=== PATIENT | male | born 1945 | race Caucasian/White ===

== ENCOUNTER 2016-08-31 07:10 | Emergency (ER) | payer OTHER ==
[~2016-08-31] VITALS: Ht 172.7 cm; Wt 90.7 kg
[~2016-08-31 07:10] MED LIST: CIPROFLOXACIN500 MG PO
[2016-08-31] MEDS ORDERED: ASPIRIN325 M2 PO (07:21)
[2016-08-31 07:54] LABS: BASO # 0.1 10*3/uL (0.0-0.1); BASO % 0.7 % (0.0-1.0); EOS # 0.1 10*3/uL (0.0-0.4); EOS % 1.3 % (1.0-4.0); HEMATOCRIT 45.9 % (42.0-52.0); HEMOGLOBIN 14.1 g/dl (14.0-18.0); IG # 0.1 10*3/uL (0.0-0.1); LYMPH # 1.9 10*3/uL (1.3-4.4); LYMPH % 17.5 % (27.0-41.0); MEAN CORPUSCULAR HGB 26.4 pg (27.0-31.0); MEAN CORPUSCULAR HGB CONC 30.7 g/dl (33.0-37.0); MEAN PLATELET VOLUME 12.6 fl (9.6-12.3); MONO # 0.8 10*3/uL (0.1-1.0); MONO % 7.6 % (3.0-9.0); NEUT # 7.8 10*3/uL (2.3-7.9); NEUT % 72.2 % (47.0-73.0); PLATELET COUNT AUTOMATED 220 10*3/uL (130-400); RED BLOOD COUNT 5.34 10*6/uL (4.50-5.90); RED CELL DISTRI WIDTH 17.7 % (0-14.5); WHITE BLOOD COUNT 10.7 10*3/uL (4.8-10.8)
[2016-08-31 08:09] LABS: ALBUMIN 3.3 gm/dl (3.1-4.5); ALKALINE PHOSPHATASE 114 U/L (45-117); BUN 25 mg/dl (7-24); CARBON DIOXIDE 27 mmol/L (21-32); CHLORIDE 108 mmol/L (98-107); EST GLOM FILT AFRICAN AMERICAN > 60 ml/min; GLUCOSE 128 mg/dL (65-99); POTASSIUM 4.1 mmol/L (3.5-5.1); SGOT/AST 32 IU/L (3-35); SGPT/ALT 87 U/L (12-78); SODIUM 146 mmol/L (136-145); TOTAL PROTEIN 7.3 gm/dL (6.4-8.2)
[2016-08-31 08:13] LABS: TROPONIN I 0.053 ng/ml (<0.045)
== END 2016-08-31 17:14 | disposition short-term general hospital (02) ==
LOC: ED 07:10
PROVIDERS: Emergency Medicine
DX: I48.91 Unspecified atrial fibrillation (principal); J90 Pleural effusion, not elsewhere classified; R79.89 Other specified abnormal findings of blood chemistry; F17.200 Nicotine dependence, unspecified, uncomplicated; Z79.899 Other long term (current) drug therapy

== ENCOUNTER → 2016-09-12 | Outpatient (CLI) | payer OTHER ==
[~2016-09-12] MED LIST changes: +ASPIRIN325 M2 PO
[2016-09-12 09:44] LABS: BUN 27 mg/dl (7-24); CARBON DIOXIDE 26 mmol/L (21-32); CHLORIDE 105 mmol/L (98-107); EST GLOM FILT AFRICAN AMERICAN > 60 ml/min; GLUCOSE 116 mg/dL (65-99); MAGNESIUM 2.5 mg/dL (1.5-2.1); PHOSPHOROUS 3.3 mg/dL (2.5-4.9); POTASSIUM 4.3 mmol/L (3.5-5.1); SODIUM 139 mmol/L (136-145)
== END | disposition home or self-care (01) ==
LOC: LAB 08:31
DX: I50.9 Heart failure, unspecified (principal)

== ENCOUNTER 2017-06-11 11:31 | Inpatient (IN) | payer OTHER ==
[~2017-06-11] VITALS: Ht 172.7 cm; Wt 84.6 kg
--- NOTE | ~2017-06-11 | PR ---
[place], [place] PROGRESS NOTE NAME: MIKA FOX UNIT #: [id number] ROOM: 522 DOCTOR: RISHI PANDEY MD BIRTHDATE: [birth year] DOS: 06/13/2017 SUBJECTIVE: The patient has a cough. He states he is less restless today, about to order some breakfast, does not have any new complaints, mostly is in bed. OBJECTIVE: VITAL SIGNS: Blood pressure is 146/90, pulse of 80, respirations 18, temperature 97.9. LUNGS: Clear. HEART: Regular. ABDOMEN: Soft. EXTREMITIES: Without any edema. ASSESSMENT AND PLAN: 1. 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 Overall, prognosis remains poor. 2. Mass effect from the cerebellar mets. The patient is being placed on Decadron. He has requested hospice care. Hopefully, they will accept him and he can be discharged home today on hospice. RISHI PANDEY MD CM:PNTRANS [id number] RISHI PANDEY MD 06/13/17 1540 interface
--- NOTE | ~2017-06-11 | WRIGHTHP ---
[place], [place] PATIENT HISTORY AND PHYSICAL EXAM NAME: MIKA FOX UNIT #: [id number] ROOM: 522 DOCTOR: RISHI PANDEY MD BIRTHDATE: [birth year] DOS: 06/11/2017 HISTORY OF PRESENT ILLNESS: This patient is not known to me, 71 years old, comes into the emergency room with complaints of weakness, tiredness and falling. The patient was diagnosed with CA of the lung about 8 months ago. He did not seek any medical treatment and continues to live at home with his sister and his daughter. The patient states that he is in pain all over his body. He also has had some headaches. He denies having any chest pains or palpitations or shortness of breath. PAST MEDICAL HISTORY: Significant for: 1. Diagnosis of CA lung made 8 months ago. There was no medical treatment ordered for that. 2. History of atrial fibrillation. 3. Generalized anxiety disorder. 4. History of transfer to [facility] in 2017 for chest pain. MEDICATIONS: He is currently on are Xanax 0.5 q.i.d., aspirin 325 daily, digoxin 0.125 daily, Lexapro 20 daily, Lasix 80 daily, melatonin 3 mg daily. SOCIAL HISTORY: History of smoking. Denies using any alcohol. Again, lives at home with his daughter and sister. PHYSICAL EXAMINATION: GENERAL: He is awake and alert and oriented, slightly restless. VITAL SIGNS: Graphic trend shows a pressure of 142/70, pulse of 76, respirations 14, afebrile. LUNGS: Diminished breath sounds. No wheezes heard this morning, a few scattered rhonchi could be heard. HEART: Irregular. Heart rate in the 90s. ABDOMEN: Soft, scaphoid. EXTREMITIES: Without any edema. ASSESSMENT AND PLAN: 1. The patient with CA lung, who presents after a fall at home. He has decided not to undergo any treatment for his underlying malignancy. I do not know what the pathology is of his lung cancer. So for right now he has had a CT scan of the head done which showed localized mass effect, vasogenic edema with multiple mets noticed. So, it is appropriate for this patient to be on hospice care. The patient has requested the hospice, so arrangements will be made for hospice to see him. He would like to go home with hospice if that can be arranged we will do that. 2. Frailty with falls from the underlying cancer. No new treatments will be ordered, but Decadron 4 mg twice a day will be started for the edema which can be continued at home. 3. Chronic atrial fibrillation, on digoxin and Lasix, which also being continued. [place], [place] PATIENT HISTORY AND PHYSICAL EXAM NAME: MIKA FOX UNIT #: [id number] ROOM: 522 DOCTOR: RISHI PANDEY MD BIRTHDATE: [birth year] RISHI PANDEY MD CM:HISPHYS:PATIENT HISTORY AND PHYSICAL EXAMINATION [id number] RISHI PANDEY MD 06/12/17 1723 interface
--- NOTE | ~2017-06-11 | PR ---
[place], [place] PROGRESS NOTE NAME: MIKA FOX UNIT #: [id number] ROOM: 522 DOCTOR: RISHI PANDEY MD BIRTHDATE: [birth year] DOS: 06/19/2017 SUBJECTIVE: The patient is about the same, does not have any new changes. He is still waiting for placement. OBJECTIVE: VITAL SIGNS: Graphic trend shows a pressure of 133/75, pulse of 71, respirations 20, temperature 97.4. LUNGS: Diminished breath sounds, clear. HEART: Regular. ABDOMEN: Soft. EXTREMITIES: Without any edema. GENERAL: He is awake and alert and oriented, slightly slow in mentation, but answers questions appropriately. ASSESSMENT AND PLAN: 1. Lung cancer with mets to the brain. Overall, prognosis remains poor and guarded. 2. Mets causing him surrounding cerebral edema, on Decadron. 3. Adult failure to thrive. The patient to go to [facility] today when bed is available. RISHI PANDEY MD CM:PNTRANS [phone] RISHI PANDEY MD 06/20/17 1325 interface
--- NOTE | ~2017-06-11 | PR ---
[place], [place] PROGRESS NOTE NAME: MIKA FOX UNIT #: [id number] ROOM: 522 DOCTOR: MEGAN MORRIS,CARLOTTA Au BIRTHDATE: [birth year] DOS: 06/16/2017 The patient says he is starting to feel better. He is being treated by Dr. Berry after admission for adult failure to thrive and he worked with physical therapy. Carcinoma of the lung with metastasis to the brain. Mass effect from cerebral metastasis, poor prognosis. Chronic atrial fibrillation with controlled heart rate with digoxin. Generalized anxiety disorder treated and controlled with Xanax. CARLOTTA GUZMAN MD CM:PNTRANS [id number] CARLOTTA GUZMAN MD 06/16/17 2252 interface
--- NOTE | ~2017-06-11 | PR ---
[place], [place] PROGRESS NOTE NAME: MIKA FOX UNIT #: [id number] ROOM: 522 DOCTOR: RISHI PANDEY MD BIRTHDATE: [birth year] DOS: 06/15/2017 SUBJECTIVE: The patient is doing fine without any complaints this morning. OBJECTIVE: VITAL SIGNS: Graph trend shows pressure of 142/96, pulse of 76, respirations 20, temperature 98.1. LUNGS: Diminished breath sounds. HEART: Regular. ABDOMEN: Obese. EXTREMITIES: Without any edema. ASSESSMENT AND PLAN: 1. 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 2. Adult failure to thrive. The patient is now planning to go home. Sister plans to take care of him, so plan is to discharge him to home today. RISHI PANDEY MD CM:PNTRANS [id number] RISHI PANDEY MD 06/15/17 2204 interface
--- NOTE | ~2017-06-11 | PR ---
[place], [place] PROGRESS NOTE NAME: MIKA FOX UNIT #: [id number] ROOM: 522 DOCTOR: RISHI PANDEY MD BIRTHDATE: [birth year] DOS: SUBJECTIVE: The patient is doing okay, does not have any new complaints. OBJECTIVE: VITAL SIGNS: Graphic trend shows a pressure 123/71, pulse of 78, respirations 16 and temperature 97.6. LUNGS: Diminished breath sounds, clear. HEART: Regular. ABDOMEN: Soft. EXTREMITIES: Without any edema. ASSESSMENT AND PLAN: Carcinoma of the lung with mets to the brain with mass effect. The patient is stable. Unfortunately, we were not able to discharge him with hospice because he does not have any family to accept him at home, so waiting for social service input into that. The patient will stay here. We will discontinue the fluids. RISHI PANDEY MD CM:PNTRANS [phone] RISHI PANDEY MD 06/14/17 1020 interface
--- NOTE | ~2017-06-11 | DS ---
[place], [place] DISCHARGE SUMMARY NAME: MIKA FOX UNIT #: [id number] ROOM: 522 DOCTOR: RISHI PANDEY MD BIRTHDATE: [birth year] DOS: 06/13/2017 DIAGNOSES: 1. Carcinoma of the lung with mets to the brain. 2. Mass effect from cerebral metastasis. 3. Adult failure to thrive with frailty and falls. 4. History of atrial fibrillation. HOSPITAL COURSE: A 71-year-old patient who comes in with complaints of weakness, tiredness and multiple falls. After admission, the patient was placed on Decadron. Hospice consultation was obtained. The patient has requested to hospice for discharge to home, so the plan therefore is for the hospice to accept him today and discharge him to home today. Decadron was started and will be continued at home. The patient to follow up with his PCP as an outpatient. Discharge medications will remain the same as on home medications. No changes were made, which is aspirin 325, digoxin 0.125, melatonin 3 mg, Lexapro 20, Xanax 0.5 q.i.d., Lasix 80. RISHI PANDEY MD CM:DISCHARG [phone] [id number] RISHI PANDEY MD 06/13/17902 interface
--- NOTE | ~2017-06-11 | PR ---
[place], [place] PROGRESS NOTE NAME: MIKA FOX UNIT #: [id number] ROOM: 522 DOCTOR: CARLOTTA GUZMAN MD BIRTHDATE: [birth year] DOS: 06/17/2017 SUBJECTIVE: The [facility] to [facility]. OBJECTIVE: VITAL SIGNS: Blood pressure 127/80, heart rate 87 beats per minute, breathing 20 times per minute, temperature 98.5 degrees Fahrenheit. GENERAL APPEARANCE: The patient is alert and oriented x 3, in no visible distress, except for generalized weakness. HEENT AND NECK: Exam within normal limits. CARDIOVASCULAR SYSTEM: Heart rate is regular in rate and rhythm. S1 and S2 normally audible. LUNGS: Clear to auscultation. ABDOMEN: Soft, nontender. No obvious organomegaly. Bowel sounds are present. EXTREMITIES: Without significant cyanosis or edema. IMPRESSION AND PLAN: 1. The patient with metastatic carcinoma of the lung to the brain with some brain edema and poor prognosis. The patient says he would like to go to nursing facility for rehabilitation. The patient says he is already working with hospice. 2. Advance adult failure to thrive. The patient is working with physical therapy. 3. Chronic atrial fibrillation, with controlled heart rates with digoxin. 4. Generalized anxiety disorder, treated and controlled with Xanax as needed. CARLOTTA GUZMAN MD CM:PNTRANS [phone] CARLOTTA GUZMAN MD 06/17/171840 interface
--- NOTE | ~2017-06-11 | PR ---
[place], [place] PROGRESS NOTE NAME: MIKA FOX UNIT #: [id number] ROOM: 522 DOCTOR: CARLOTTA GUZMAN MD BIRTHDATE: [birth year] DOS: 06/18/2017 SUBJECTIVE: The patient is feeling about the same. OBJECTIVE: VITAL SIGNS: Blood pressure 120/83, heart rate 83 beats, breathing 20 times per minute, temperature 98 degrees Fahrenheit. GENERAL: Generalized weakness. HEENT AND NECK: Exam within normal limits. CARDIOVASCULAR SYSTEM: Heart rate is regular in rate and rhythm. S1 and S2 normally audible. LUNGS: Clear to auscultation. ABDOMEN: Soft, nontender. No obvious organomegaly. Bowel sounds are present. EXTREMITIES: Without significant cyanosis or edema. IMPRESSION: 1. The patient with metastatic carcinoma of the lung to the brain with brain edema and mass effect. The patient [facility]. His prognosis is poor. The patient says he is already working with hospice. 2. Advance adult failure to thrive. The patient working with physical therapy. 3. Chronic atrial fibrillation with controlled heart rates with digoxin. 4. Generalized anxiety disorder, treated and controlled with Xanax as needed. CARLOTTA GUZMAN MD CM:PNTRANS [phone] CARLOTTA GUZMAN MD 06/19/17 0848 interface
[2017-06-11 11:31] VITALS: BP 137/78
[2017-06-11] MEDS ORDERED: DIGOX125 MCG PO (11:50)
[2017-06-11] MEDS ORDERED: LEXAPRO20 MG PO (11:50)
[2017-06-11] MEDS ORDERED: MELATONIN3 MG PO (11:50)
[2017-06-11] MEDS ORDERED: XANAX0.5 MG PO (11:52)
[2017-06-11] MEDS ORDERED: LASIX80 MG PO (11:52)
[2017-06-11 12:33] LABS: BASO # 0.1 10*3/uL (0.0-0.1); BASO % 0.6 % (0.0-1.0); EOS # 0.1 10*3/uL (0.0-0.4); EOS % 1.7 % (1.0-4.0); HEMATOCRIT 43.6 % (42.0-52.0); HEMOGLOBIN 13.2 g/dl (14.0-18.0); LYMPH # 0.9 10*3/uL (1.3-4.4); LYMPH % 10.2 % (27.0-41.0); MEAN CELL VOLUME 79.6 fl (80.0-94.0); MEAN CORPUSCULAR HGB 24.1 pg (27.0-31.0); MEAN CORPUSCULAR HGB CONC 30.3 g/dl (33.0-37.0); MEAN PLATELET VOLUME 10.5 fl (9.6-12.3); MONO # 0.6 10*3/uL (0.1-1.0); MONO % 7.5 % (3.0-9.0); NEUT # 6.6 10*3/uL (2.3-7.9); NEUT % 79.5 % (47.0-73.0); PLATELET COUNT AUTOMATED 273 10*3/uL (130-400); RED BLOOD COUNT 5.48 10*6/uL (4.50-5.90); RED CELL DISTRI WIDTH 18.1 % (0-14.5); WHITE BLOOD COUNT 8.3 10*3/uL (4.8-10.8)
[2017-06-11 12:42] LABS: ACT PARTIAL THROMBO TIME 26.3 SECONDS (20.8-31.5)
[2017-06-11 12:51] LABS: ALBUMIN 3.1 gm/dl (3.1-4.5); ALKALINE PHOSPHATASE 104 U/L (45-117); BUN 13 mg/dl (7-24); CHLORIDE 99 mmol/L (98-107); POTASSIUM 3.7 mmol/L (3.5-5.1); SGOT/AST 23 IU/L (3-35); SGPT/ALT 13 U/L (12-78); SODIUM 139 mmol/L (136-145); TOTAL PROTEIN 7.9 gm/dL (6.4-8.2)
[2017-06-11 12:52] LABS: TROPONIN I < 0.015 ng/ml (<0.045)
[2017-06-11 13:00] VITALS: BP 113/559
[2017-06-11 14:42] VITALS: BP 153/83
[2017-06-11 16:00] VITALS: BP 129/68
[2017-06-11 20:00] VITALS: BP 128/82
[2017-06-12] VITALS: BP 131/83
[2017-06-12 08:00] VITALS: BP 131/74
[2017-06-12 12:00] VITALS: BP 134/79
[2017-06-12 16:00] VITALS: BP 129/67
[2017-06-12 20:00] VITALS: BP 122/67
[2017-06-13] VITALS: BP 121/78
[2017-06-13 08:00] VITALS: BP 146/97
[2017-06-13] MEDS ORDERED: DECADRON4 MG PO (08:30)
[2017-06-13 12:00] VITALS: BP 146/91
[2017-06-13 16:00] VITALS: BP 140/80
[2017-06-13 20:00] VITALS: BP 134/72
[2017-06-14] VITALS: BP 133/94
[2017-06-14 08:00] VITALS: BP 123/71
[2017-06-14 12:00] VITALS: BP 126/73
[2017-06-14 16:00] VITALS: BP 124/70
[2017-06-14 18:17] LABS: BILIRUBIN NEGATIVE (NEGATIVE); BLOOD NEGATIVE (NEGATIVE); CLARITY CLEAR (CLEAR); COLOR YELLOW (YELLOW); GLUCOSE NEGATIVE (NEGATIVE); KETONE NEGATIVE (NEGATIVE); LEUKO ESTERASE NEGATIVE (NEGATIVE); NITRITE NEGATIVE (NEGATIVE); UROBILINOGEN 0.2 E.U./dl (0.2-1.0)
[2017-06-14 18:30] LABS: BACTERIA TRACE; RBC 0-2 rbc/hpf (0-2)
[2017-06-14 20:00] VITALS: BP 139/82
[2017-06-15] VITALS: BP 142/96
[2017-06-15 08:00] VITALS: BP 132/66
[2017-06-15 16:00] VITALS: BP 117/73
[2017-06-15 20:00] VITALS: BP 125/70
[2017-06-16] VITALS: BP 142/82
[2017-06-16 16:00] VITALS: BP 108/68
[2017-06-17] VITALS: BP 101/72
[2017-06-17 08:00] VITALS: BP 131/85
[2017-06-17 16:00] VITALS: BP 127/80
[2017-06-17 20:00] VITALS: BP 120/66
[2017-06-18] VITALS: BP 127/82
[2017-06-18 08:00] VITALS: BP 133/90
[2017-06-18 16:00] VITALS: BP 120/83
[2017-06-19] VITALS: BP 133/75
[2017-06-19 08:00] VITALS: BP 111/63
== END 2017-06-19 12:37 | disposition other institution (70) | DRG 180 ==
LOC: ED 11:31 → 5E 12:38 → EDHOLD 12:38 → 5E 13:14
PROVIDERS: Student in an Organized Health Care Education/Training Program
DX: C34.90 Malignant neoplasm of unspecified part of unspecified bronchus or lung (principal); J18.9 Pneumonia, unspecified organism; C79.31 Secondary malignant neoplasm of brain; I48.2 Chronic atrial fibrillation; F41.1 Generalized anxiety disorder; R22.0 Localized swelling, mass and lump, head; R29.6 Repeated falls; Z66 Do not resuscitate; Z51.5 Encounter for palliative care; W18.30XA Fall on same level, unspecified, initial encounter; R62.7 Adult failure to thrive; Z79.899 Other long term (current) drug therapy; Z79.82 Long term (current) use of aspirin; Z83.3 Family history of diabetes mellitus; Z80.9 Family history of malignant neoplasm, unspecified; Y93.89 Activity, other specified; Y92.89 Other specified places as the place of occurrence of the external cause; Y99.8 Other external cause status